=== PATIENT | male | born 1985 | race Caucasian/White ===

== ENCOUNTER 2017-10-01 15:51 | Emergency (ER) | payer BC, MEDICAID ==
--- NOTE | 2017-10-01 17:37 | EDM.PDOC ---
ED HPI GENERAL MEDICAL PROBLEM - General Chief Complaint: Respiratory Problem Stated Complaint: [facility] Time Seen by Provider: 10/01/17 16:22 Source of Information: Reports: Patient History Limitations: Reports: No Limitations - History of Present Illness INITIAL COMMENTS - FREE TEXT/NARRATIVE: 32 y/o M with no pmhx presents with episode of acute shortness of breath, "hyperventilation", dizziness, and hand/foot paresthesias. Was at home when it started. No provoking factor. Sudden onset. [place] lightheaded and panicky. Feeling much better upon arrival to ED without intervention. No history of similar symptoms previously. No recent illness. No recent injury. Denies ETOH/ drug use. Currently feels much better - no SOB, no dizziness, no pain, has some minimal residual numbness in fingertips. Also has been having headaches for past few months. Posterior, mild to moderate, usually better with over the counter analgesics. No head injury. Denies vision change. No focal weakness or other neurological symptoms. Hasn't seen a physician for this problem because "I 'm stubborn". Current headache is mild. Headache Pain Score (Numeric/FACES): 7 - Related Data Allergies Allergy/AdvReac Type Severity Reaction Status Date / Time adhesive Allergy Rash Verified 10/01/17 15:59 Home Meds: Home Meds . [No Known Home Meds] 10/01/17 [History] Past Medical History - Past Health History Medical/Surgical History: Denies Medical/Surgical History Social & Family History - Tobacco Use Smoking Status *Q: Current Every Day Smoker Years of Tobacco use: 21 Packs/Tins Daily: 0.5 - Caffeine Use Caffeine Use: Reports: Coffee, Energy Drinks, Soda - Recreational Drug Use Recreational Drug Use: Yes Drug Use in Last 12 Months: Yes Recreational Drug Type: Reports: Marijuana/Hashish Recreational Drug Use Frequency: Daily ED ROS GENERAL - Review of Systems Review Of Systems: See Below Constitutional: Denies: Fever HEENT: Reports: No Symptoms Respiratory: Denies: Cough Cardiovascular: Denies: Chest Pain Endocrine: Reports: No Symptoms GI/Abdominal: Denies: Abdominal Pain : Reports: No Symptoms Musculoskeletal: Reports: No Symptoms Skin: Reports: No Symptoms Neurological: Reports: Dizziness Psychiatric: Reports: No Symptoms ED EXAM, GENERAL - Physical Exam Exam: See Below Exam Limited By: No Limitations General Appearance: Alert, WD/WN, No Apparent Distress Eye Exam: Bilateral Eye: Normal Inspection Ears: Normal External Exam Nose: Normal Inspection Throat/Mouth: Normal Inspection, Normal Oropharynx, Normal Voice, No Airway Compromise Head: Atraumatic, Normocephalic Neck: Normal Inspection, Supple, Non-Tender, Full Range of Motion Respiratory/Chest: No Respiratory Distress, Lungs Clear, Normal Breath Sounds, No Accessory Muscle Use, Chest Non-Tender Cardiovascular: Normal Peripheral Pulses, Regular Rate, Rhythm, No Edema, No Gallop, No JVD, No Murmur, No Rub GI/Abdominal: Soft, Non-Tender, No Distention. No: Rebound Back Exam: Normal Inspection Extremities: Normal Inspection, No Pedal Edema Neurological: Alert, Oriented, CN II-XII Intact, Normal Cognition, No Motor/ Sensory Deficits Psychiatric: Normal Affect, Normal Mood Skin Exam: Warm, Dry, Intact, Normal Color, No Rash Course - Vital Signs Last Recorded V/S: Last Vital Signs Temp 36.7 C 10/01/17 15:56 Pulse 104 H 10/01/17 15:56 Resp 17 10/01/17 15:56 BP 131/106 H 10/01/17 15:56 Pulse Ox 99 10/01/17 15:56 - Orders/Labs/Meds Orders: Active Orders 24 hr Category Date Time Status EKG 12 Lead [EKG Documentation Completion] [RC] STAT Care 10/01/17 16:56 Active RT Carbon Monoxide Diffusion [RC] Click to Edit Care 10/01/17 17:00 Inactive Labs: Laboratory Tests 10/01/17 10/01/17 10/01/17 Range/Units 17:08 17:08 17:16 WBC 17.87 H (4.23-9.07) K/mm3 RBC 5.26 (4.63-6.08) M/mm3 Hgb 16.1 (13.7-17.5) gm/L Hct 45.7 (40.1-51.0) % MCV 86.9 (79.0-92.2) fl MCH 30.6 (25.7-32.2) pg MCHC 35.2 (32.2-35.5) g/dl RDW Std Deviation 40.4 (35.1-43.9) fL Plt Count 187 (163-337) K/mm3 MPV 10.6 (9.4-12.3) fl Neut % (Auto) 76.7 H (34.0-67.9) % Lymph % (Auto) 15.7 L (21.8-53.1) % [place] % (Auto) 6.5 (5.3-12.2) % Eos % (Auto) 0.6 L (0.8-7.0) Baso % (Auto) 0.3 (0.1-1.2) % Neut # (Auto) 13.70 H (1.78-5.38) K/mm3 Lymph # (Auto) 2.81 (1.32-3.57) K/mm3 [place] # (Auto) 1.16 H (0.30-0.82) K/mm3 Eos # (Auto) 0.10 (0.04-0.54) K/mm3 Baso # (Auto) 0.06 (0.01-0.08) K/mm3 ABG Carboxyhemoglobin 2.8 H (0.00-1.50) %THgb Sodium 141 (136-145) mEq/L Potassium 3.8 (3.5-5.1) mEq/L Chloride 104 (98-107) mEq/L Carbon Dioxide 26 (21-32) mEq/L Anion Gap 14.8 (5-15) BUN 22 H (7-18) mg/dL Creatinine 1.2 (0.7-1.3) mg/dL Est Cr Clr Drug Dosing 91.56 mL/min Estimated GFR (MDRD) > 60 (>60) mL/min BUN/Creatinine Ratio 18.3 H (14-18) Glucose 93 (74-106) mg/dL Calcium 9.9 (8.5-10.1) mg/dL Magnesium 2.1 (1.8-2.4) mg/dl Total Bilirubin 0.8 (0.2-1.0) mg/dL AST 20 (15-37) U/L ALT 19 (16-63) U/L Alkaline Phosphatase 107 (46-116) U/L Troponin I < 0.017 (0.00-0.056) ng/mL Total Protein 8.2 (6.4-8.2) g/dl Albumin 5.0 (3.4-5.0) g/dl Globulin 3.2 gm/dL Albumin/Globulin Ratio 1.6 (1-2) - Re-Assessments/Exams Free Text/Narrative Re-Assessment/Exam: EKG, cxr, and labs unremarkable. Has been calm and well appearing throughout ED stay. Vitals normal at this time. No definite explanation for his prior symptoms. Possible anxiety attack. Encouraged him to f/u with a PCP for chronic headaches, no red flag features. Discussed return precautions. Departure - Departure Time of Disposition: 18:00 Disposition: Home, Self-Care 01 Clinical Impression: Panic attack - Discharge Information Instructions: Panic Attacks, [id number] Referrals: PCP,None [Primary Care Provider] - Forms: ED Department Discharge Additional Instructions: 1. Follow up with clinic provider for further evaluation of your headaches. Meanwhile, OK to take ibuprofen and/or acetaminophen (Tylenol) as needed for headaches. 2. Also discuss today's episode 3. Return to the ED if you have a new episode of intense shaking, difficulty breathing, chest pain, or other concerning symptoms. - My Orders Last 24 Hours: My Active Orders 10/01/17 16:56 EKG 12 Lead [EKG Documentation Completion] [RC] STAT 10/01/17 17:00 RT Carbon Monoxide Diffusion [RC] Click to Edit - Assessment/Plan Last 24 Hours: My Active Orders 10/01/17 16:56 EKG 12 Lead [EKG Documentation Completion] [RC] STAT 10/01/17 17:00 RT Carbon Monoxide Diffusion [RC] Click to Edit
== END 2017-10-01 18:28 | disposition home or self-care (01) ==
LOC: JD.ED 15:51
DX: F41.0 Panic disorder [episodic paroxysmal anxiety] (principal); F17.210 Nicotine dependence, cigarettes, uncomplicated; Z91.048 Other nonmedicinal substance allergy status
CPT/HCPCS: 36415; 80053; 82375; 83735; 84484; 85025; 93005; 93010; 99283; 99284-25